=== PATIENT | female | born 1935 | race Caucasian/White ===

== ENCOUNTER 2019-07-10 19:33 | Emergency (ER) | payer MEDICARE, SELFPAY ==
--- NOTE | ~2019-07-10 | CT_ITS ---
EXAMINATION: CT brain wo con DATE: 07/10/2019 20:17 INDICATION: Head injury. TECHNIQUE: Computed tomography (CT) of the head was performed without intravenous contrast. The mA wa s adjusted according to patient size. Iterative reconstruction technique was employed. The dose-lengt h product was 605.33 mGy-cm. COMPARISON: None FINDINGS: There are lacunar infarcts in the bilateral basal ganglia. There are scattered areas of low attenuation in the cerebral white matter. There is no intracranial hemorrhage, acute infarction, or abnormal intracranial mass lesion. The ventricles are normal in size. There is mild mucosal thickenin g in the ethmoid sinuses. There are likely changes of ocular lens replacement surgeries. The mastoid air cells are normal. IMPRESSION: 1. Old lacunar infarcts in the bilateral basal ganglia. 2. Mild nonspecific cerebral white matter disease, which likely represents chronic small vessel ische tyler disease. Reviewed, dictated and finalized at location A. T FLOOR AUTOMATION MANAGER IMPRESSION: 1. Old lacunar infarcts in the bilateral basal ganglia. 2. Mild nonspecific cerebral white matter disease, which likely represents entry level administrative assistant drew small vessel ischemic disease.
--- NOTE | ~2019-07-10 | CT_ITS ---
EXAMINATION: CT cervical spine wo con DATE: 07/10/2019 20:17 INDICATION: Head injury. TECHNIQUE: Computed tomography (CT) of the cervical spine was performed without intravenous contrast. Automated exposure control and iterative reconstruction technique were employed. The dose-length pro duct was 376.31 mGy-cm. COMPARISON: None FINDINGS: There is a 1.7 cm nodule in left thyroid lobe. Further evaluation is likely not needed give n the patient's age. There is 3 degrees dextrocurvature of cervical spine. There is 2 mm anterolisthe sis of C7 on T1. Vertebral body heights are normal. There is severely decreased disc height at C2-C3, moderately decreased disc height at C3-C4 and C4-C5, and severely decreased disc height from C5-C6 t hrough C7-T1. The following disc levels are specifically discussed: C2-C3: There is moderate right and severe left uncovertebral joint osteoarthritis. There is moderate bilateral facet joint osteoarthritis. There is mild bilateral neural foraminal stenosis. There is mil d central canal stenosis. C3-C4: There is mild right and moderate left uncovertebral joint osteoarthritis. There is severe bila teral facet joint osteoarthritis. There is mild right and moderate left neural foraminal stenosis. Th ere is mild central canal stenosis. C4-C5: There is severe bilateral uncovertebral joint osteoarthritis. There is mild bilateral facet medardo int osteoarthritis. There is mild right and moderate left neural foraminal stenosis. There is mild ce ntral canal stenosis. C5-C6: There is severe bilateral uncovertebral joint osteoarthritis. There is mild right and moderate left facet joint osteoarthritis. There is moderate bilateral neural foraminal stenosis. There is mil d central canal stenosis. C6-C7: There is severe bilateral uncovertebral joint osteoarthritis. There is mild bilateral facet medardo int osteoarthritis. There is moderate bilateral neural foraminal stenosis. There is mild central geo l stenosis. C7-T1: There is severe bilateral uncovertebral joint osteoarthritis. There is severe bilateral facet joint osteoarthritis. There is mild bilateral neural foraminal stenosis. There is mild central canal stenosis. IMPRESSION: 1. No fracture. 2. Severe cervical spondylosis. Reviewed, dictated and finalized at location A. LER SECTIONS ASSEMBLER
[2019-07-10 19:36] VITALS: BP 109/91; PULSE 75; RESP 16; TEMP 36.4; O2SAT 97
--- NOTE | 2019-07-10 19:48 | ED.FALL ---
HPI - Fall General Chief Complaint: Fall Stated Complaint: fall head lac Time Seen by Provider: 07/10/19 19:48 Source: patient Mode of arrival: EMS Limitations: no limitations History of Present Illness HPI Narrative: An 84 y/o female presents to the ED, via EMS, after a fall 1.5 hours ago. 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 Pt is unsure if her tetanus immunization is UTD. She reports a laceration to her right forehead, but denies neck pain. Pt has a C-collar in place. Onset (ago): hour(s) (1.5) Fall from: chair Location of injury: head (right forehead) Related Data Home Medications Medication Instructions Recorded Confirmed Centrum Silver Women 05/24/19 Vitamin D3 05/24/19 allopurinol 05/24/19 carvedilol 05/24/19 duloxetine mg PO 05/24/19 hydrochlorothiazide 05/24/19 05/24/19 omeprazole 05/24/19 risperidone mg 05/24/19 turmeric 05/24/19 bupropion HCl 150 mg PO QAM 07/10/19 magnesium oxide 400 mg PO DAILY 07/10/19 Allergies Allergy/AdvReac Type Severity Reaction Status Date / Time lisinopril Allergy Severe swelling Verified 05/24/19 12:05 pregabalin Allergy Severe edema Verified 05/24/19 12:05 gabapentin Allergy Intermediate swelling Verified 05/24/19 12:05 Penicillins Allergy Unknown UNKNOWN Verified 05/24/19 12:05 Sulfa (Sulfonamide Allergy Unknown UNKNOWN Verified 05/24/19 12:05 Antibiotics) Review of Systems Review of Systems: All systems reviewed & are unremarkable except as noted in HPI and below Constitutional: Constitutional: Denies chills, Denies fever(s), Denies headache(s) and Denies weakness Comments: Reports: a fall Eyes: Eyes: Denies blurry vision ENT: Denies headache(s) and Denies neck pain Cardiovascular: Cardiovascular: Denies chest pain and Denies dyspnea Respiratory: Respiratory: Denies cough and Denies dyspnea Gastrointestinal: Gastrointestinal: Denies abdominal pain, Denies diarrhea, Denies nausea and Denies vomiting Genitourinary: Genitourinary: Denies hematuria and Denies dysuria Musculoskeletal: Musculoskeletal: Denies back pain and Denies neck pain Neurologic: Denies headache(s) and Denies weakness Comments: Reports: laceration to right forehead PMFSH Past Medical History Medical History (Updated 07/10/19 @ 23:36 by Shari Villalobos MD) Anxiety Back injury CHF (congestive heart failure) Depression GERD (gastroesophageal reflux disease) Gout HTN (hypertension) Multifocal atrial tachycardia Spinal stenosis Surgical History Surgical History (Updated 07/10/19 @ 20:15 by Shreron Turner) H/O adenoidectomy H/O gastric bypass with reversal History of appendectomy History of bilateral knee replacement History of gastric stapling History of tonsillectomy Hx of cholecystectomy Social History Social History (Updated 07/10/19 @ 20:15 by Sherron Turner) Smoking status: Never smoker Gender identity (if verbalized by the patient): Female Comments PCP: Dr. James Exam Const: General: no acute distress and well developed HENMT: Head: normocephalic Ears: external ears normal General nose exam: Normal external nose present Eyes: General: appearance normal, both eyes and all related structures Conjunctivae: conjunctivae normal Neck: Neck: normal visual inspection and full ROM Other: C-collar in place. Chest: Chest palpation & inspection: normal inspection of the chest and no tenderness Resp: Effort & Inspection: normal respiratory effort Auscultation: clear to auscultation bilaterally Cardio: Rate: regular rate Rhythm: regular rhythm GI: GI Palp: No abdominal tenderness and Yes Soft to palpation Skin: General skin exam: normal color and turgor normal Trauma: laceration (Laceration to right forehead) Neuro: Other: A&O x1. Disoriented to place and time. Extrem: General: no pedal edema Other: decreased ROM in bilateral arms for several weeks Psych: Appeara
[2019-07-10 20:03] VITALS: BP 140/68; PULSE 78; RESP 20; O2SAT 97
[2019-07-10] MEDS: TETANUS,DIPHTHERIA,AC PERTUSSIS ADULT (0.5 ML) BOOSTRIX IM (20:05)
[2019-07-10 21:23] VITALS: BP 145/82; PULSE 82
[2019-07-10 23:38] VITALS: BP 103/87; PULSE 76; RESP 20; O2SAT 95
--- NOTE | 2019-07-10 23:56 | PC.NURSE ---
Called [facility] to transport patient to [place]. ETA [id number]
[2019-07-11 01:02] VITALS: BP 133/54; PULSE 76; RESP 18; O2SAT 100
--- NOTE | 2019-07-11 02:00 | PC.NURSE ---
[facility] here
[2019-07-11 02:14] VITALS: BP 136/81; PULSE 80; RESP 20; O2SAT 95
== END 2019-07-11 02:17 ==
PROVIDERS: Emergency Provider Emergency Medicine
DX: S01.81XA Laceration without foreign body of other part of head, initial encounter (principal); Z23 Encounter for immunization; I50.9 Heart failure, unspecified; F41.9 Anxiety disorder, unspecified; F32.9 Major depressive disorder, single episode, unspecified; I11.0 Hypertensive heart disease with heart failure; M10.9 Gout, unspecified; Z98.84 Bariatric surgery status; Z96.653 Presence of artificial knee joint, bilateral; W18.39XA Other fall on same level, initial encounter
CPT/HCPCS: 12013; 70450; 72125; 90471; 90715; 99284

== ENCOUNTER 2019-08-21 22:15 | Observation (INO) | payer MEDICARE, SELFPAY ==
--- NOTE | ~2019-08-21 | XR_ITS ---
XR chest 1V portable DATE: 08/21/2019 22:44 INDICATION: Atrial fibrillation TECHNIQUE: Portable AP chest on 08/21/2019 at 2243 hours COMPARISON: 07/08/2017 PA and lateral chest FINDINGS: Heart size appears within normal range. There is aortic mild unfolding. No hilar or mediast inal enlargement is evident. The lungs appear clear of infiltrate or consolidation. No pleural effusion or pulmonary vascular nikhil estion or pneumothorax. Postoperative changes, left upper quadrant of abdomen. Osteoarthritic changes at the glenohumeral joints, particularly severe on the right. Degenerative spu rring of the thoracic and lumbar spine. IMPRESSION: No active cardiopulmonary disease or significant change since 07/08/2017 Reviewed, dictated and finalized at location A. IMPRESSION: No active cardiopulmonary disease or significant change since 2017
[2019-08-21 22:23] VITALS: BP 123/92; PULSE 129; RESP 20; TEMP 36.7; O2SAT 98
--- NOTE | 2019-08-21 22:29 | ECG_ITS ---
Measurements Intervals [place] Rate: 143 P: [place]: 0 QRS: 7 QRSD: 82 T: 87 QT: 317 QTc: 490 Interpretive Statements ATRIAL FIBRILLATION WITH RAPID VENTRICULAR RESPONSE LOW QRS VOLTAGE IN PRECORDIAL LEADS NONSPECIFIC ST & T-WAVE ABNORMALITY- LATERAL LEADS ABNORMAL ECG Electronically Signed On 08-22-2019 7:04:50 CDT by Ayan Winchester D.O.
[2019-08-21 23:01] LABS: Basophils Percent Auto 0.3 % (0.2-1.2); Eosinophils Absolute Auto 0.2 K/mm3 (0-0.3); Eosinophils Percent Auto 1.9 % (0-4.4); Hematocrit 30.5 % (37.0-47.0); Hemoglobin 9.4 g/dL (12.0-15.0); Immature Granulocyte Absolute 0.07 K/mm3 (0.00-0.031); Immature Granulocyte Percent A 0.7 % (0-0.5); Immature Platelet Fraction Pct 1.3 % (0.9-11.2); Lymphocytes Absolute Auto 0.89 K/mm3 (0.9-3.2); Lymphocytes Percent Auto 8.8 % (18.3-44.2); Mean Corpuscular HGB Conc 30.8 g/dl (32-36); Mean Corpuscular Hemoglobin 28.7 pg (26-34); Mean Corpuscular Volume 93.3 fl (80-100); Mean Platelet Volume 12.8 fl (7.4-10.4); Monocytes Percent Auto 10.1 % (2.6-8.5); Neutrophils Absolute Auto 7.9 K/mm3 (1.3-6.7); Neutrophils Percent Auto 78.2 % (45.5-73.1); Platelet Count Result 315 k/mm3 (150-375); Red Blood Count 3.27 M/mm3 (4.2-5.4); Red Cell Distribution Width 16.2 % (11.5-14.5); White Blood Count 10.1 K/mm3 (4.5-10.0)
--- NOTE | 2019-08-21 23:06 | PC.NURSE ---
REPORT GIVEN TO OLGA MENESES. TOLD ABOUT PENDING CARDIZEM DRIP AND BOLUS WITH PT HR 90BPM. RN STATES HE WILL CONSULT WITH EDP ABOUT CARDIZEM DRIP AND BOLUS.
[2019-08-21 23:08] LABS: INR 1.1; Prothrombin Time 13.6 Seconds (11.1-14.7)
--- NOTE | 2019-08-21 23:08 | ED.SKABFB ---
HPI - Skin/Abscess/Foreign Bdy General Chief complaint: Skin/Abscess/Foreign Body Stated complaint: abd drain problem Time Seen by Provider: 08/21/19 22:25 Source: patient and RN notes reviewed Mode of arrival: EMS Limitations: no limitations History of Present Illness HPI narrative: A 84 y/o female presents to the ED via EMS from [facility] with excess feces draining from her open ABD drain beginning tonight. She states that she had a open ABD drain placed after having janeth removed by Dr. Harris at [facility] ago. She reports that the drain has been draining as normal but that there is new MS staff who thought that it was draining too much when they changed her bandages tonight, so they called EMS to have the pt brought here to be evaluated. She also notes that she saw her surgeon 7 days ago and was told that everything was normal. She denies any fevers, chills, CP, SOB, N/V/D, or ABD pain. MD complaint: other (excess feces draining from her open ABD drain) Onset (ago): hour(s) (tonight) Context: other (Open ABD drain) Associated symptoms: denies other symptoms Treatments prior to arrival: bandages Related Data Home Medications Medication Instructions Recorded Confirmed Centrum Silver Women 05/24/19 Vitamin D3 05/24/19 allopurinol 05/24/19 carvedilol 05/24/19 duloxetine mg PO 05/24/19 hydrochlorothiazide 05/24/19 05/24/19 omeprazole 05/24/19 risperidone mg 05/24/19 turmeric 05/24/19 bupropion HCl 150 mg PO QAM 07/10/19 magnesium oxide 400 mg PO DAILY 07/10/19 Allergies Allergy/AdvReac Type Severity Reaction Status Date / Time lisinopril Allergy Severe swelling Verified 05/24/19 12:05 pregabalin Allergy Severe edema Verified 05/24/19 12:05 gabapentin Allergy Intermediate swelling Verified 05/24/19 12:05 Penicillins Allergy Unknown UNKNOWN Verified 05/24/19 12:05 Sulfa (Sulfonamide Allergy Unknown UNKNOWN Verified 05/24/19 12:05 Antibiotics) Review of Systems Review of Systems: All systems reviewed & are unremarkable except as noted in HPI and below Constitutional: Constitutional: Denies chills and Denies fever(s) Cardiovascular: Cardiovascular: Denies chest pain Respiratory: Respiratory: Denies dyspnea Gastrointestinal: Gastrointestinal: Denies abdominal pain, Denies diarrhea, Denies nausea, Denies vomiting and Reports other (Excess feces draining from open ABD drain) [facility] Past Medical History Medical History (Updated 08/22/19 @ 00:04 by Brodie Tse) A-fib Abdominal abscess Anxiety Back injury CHF (congestive heart failure) Depression GERD (gastroesophageal reflux disease) Gout HTN (hypertension) Multifocal atrial tachycardia Open abdominal incision with drainage Spinal stenosis Surgical History Surgical History (Updated 08/22/19 @ 00:05 by Brodie Tse) H/O adenoidectomy H/O gastric bypass with reversal History of abdominal surgery Removal of abscesses and placed a ABD drain. History of appendectomy History of bilateral knee replacement History of gastric stapling History of tonsillectomy Hx of cholecystectomy Social History Social History Smoking status: Never smoker Gender identity (if verbalized by the patient): Female Exam Narrative: Exam Narrative: General appearance: Well-developed, well-nourished, morbidly obese, no family member at the bedside Skin: Normal color Head: Normocephalic, nontraumatic Eyes: Clear conjunctiva ENT: Oropharynx normal, ears normal, nose normal Neck: Supple, nontender Chest and respiratory: Airway patent, no respiratory distress, no accessory muscle use Heart: Regular rate/rhythm Abdomen: Soft, nontender, no organomegaly, quiet bowel sounds, 1-1/2 x 1 and half centimeter opening at the left lower abdomen draining yellow frothy discharge.. No tenderness, no guarding or rebound Vascular: Normal peripheral pulses, normal capillary refill. Musculoskeletal: Normal range of motion, nonten
[2019-08-21 23:09] LABS: Partial Thromboplastin Time 31.5 SECONDS (22.3-36.8)
[2019-08-21 23:17] LABS: Alanine Aminotransferase 12 U/L (4-35); Albumin Level 3.6 g/dL (3.5-5.1); Alkaline Phosphatase 105 U/L (38-126); Aspartate Amino Transferase 17 U/L (14-36); Bilirubin,Total 0.4 mg/dL (0.2-1.3); Blood Urea Nitrogen 23 mg/dL (7-17); Calcium 9.2 mg/dL (8.4-10.2); Carbon Dioxide 29 mmol/L (22-30); Chloride 100 mmol/L (98-107); Estimated Glomerular Filt Rate 47; Glucose 106 mg/dL (65-105); Potassium 3.7 mmol/L (3.4-5.0); Sodium 138 mmol/L (137-145)
[2019-08-21 23:24] LABS: Troponin I < 0.012 ng/mL (0.000-0.034)
[2019-08-21 23:26] LABS: NT Pro B Type Natriuretic Pept 663 PG/ML (5-100)
[2019-08-21 23:58] VITALS: BP 148/77; PULSE 93; RESP 18; O2SAT 98
[2019-08-22] VITALS (9 sets, daily range): BP systolic 119–134; BP diastolic 61–80; PULSE 78–94; RESP 16–22; TEMP 35.9–36.8; O2SAT 95–100; BMI 36.2
--- NOTE | 2019-08-22 00:28 | PM.IMHP ---
H&P: HPI History of Present Illness Chief complaint: Paroxymal A. Fib, Chronic abdominal wall fistula Narrative: This is an unfortunate 84 year old female with a history of an episode of atrial fibrillation in the past and a chronic lower abdominal fistula which is followed at [facility] by Dr. Harris. The patient was sent to the hospital for evaluation from [place] as the staff there were worried about the output she has had from her fistula. The patient told EMS to take her to [facility] but en route she developed tachycardia and was brought to [facility] for evaluation. The patient was found to be in rapid atrial fibrillation. She denies any significant symptoms tonight. She denies any chest pain, cough, fevers, shortness of breath, sore throat, palpitations, abdominal pain, dysuria, hematuria, nausea, vomiting, diarrhea or rectal bleeding. The pateint was started on Cardizem IV in the ER and [facility] was called. She was placed on a waiting list as there are no beds available at this time. She is not on any anticoagulants or other medications for atrial fibrillation as she has only had one single episode of atrial fibrillation in the past. She verbalized to me tonight that she does not want to be on any anticoagulants. No other complaints. Review of Systems Review of Systems: All systems reviewed & are unremarkable except as noted in HPI and below PMFSH Past Medical History Medical History A-fib Abdominal abscess Anxiety Back injury CHF (congestive heart failure) Depression GERD (gastroesophageal reflux disease) Gout HTN (hypertension) Multifocal atrial tachycardia Open abdominal incision with drainage Spinal stenosis Surgical History Surgical History H/O adenoidectomy H/O gastric bypass with reversal History of abdominal surgery Removal of abscesses and placed a ABD drain. History of appendectomy History of bilateral knee replacement History of gastric stapling History of tonsillectomy Hx of cholecystectomy Family History Family History Mother Hypertension Lung cancer Father Lung cancer Social History Social History Smoking status: Never smoker Second hand tobacco smoke exposure: Yes (parents) Alcohol intake: former Drinks per week: 0 Substance use: never Gender identity (if verbalized by the patient): Female Spiritual care concerns: No Meds Home Medications and Allergies Home Medications Medication Instructions Recorded Confirmed Type Vitamin D3 10,000 unit PO DAILY 05/24/19 08/22/19 History allopurinol 300 mg PO DAILY 05/24/19 08/22/19 History duloxetine 60 mg PO BID 05/24/19 08/22/19 History hydrochlorothiazide 25 mg PO DAILY 05/24/19 08/22/19 History omeprazole 20 mg PO DAILY 05/24/19 08/22/19 History risperidone 1 mg PO DAILY 05/24/19 08/22/19 History turmeric 450 mg PO DAILY 05/24/19 08/22/19 History bupropion HCl 150 mg PO QAM 07/10/19 08/22/19 History magnesium oxide 400 mg PO DAILY 07/10/19 08/22/19 History cefdinir 300 mg PO Q12H 08/22/19 08/22/19 History Allergies Allergy/AdvReac Type Severity Reaction Status Date / Time lisinopril Allergy Severe swelling Verified 05/24/19 12:05 pregabalin Allergy Severe edema Verified 05/24/19 12:05 gabapentin Allergy Intermediate swelling Verified 05/24/19 12:05 Penicillins Allergy Unknown UNKNOWN Verified 05/24/19 12:05 Sulfa (Sulfonamide Allergy Unknown UNKNOWN Verified 05/24/19 12:05 Antibiotics) Vital Signs Vital Signs - 24 hr 08/21/19 22:23 08/21/19 23:58 Temperature 36.7 C Pulse Rate 129 H 93 Respiratory Rate 20 18 Blood Pressure 123/92 H 148/77 H Pulse Oximetry 98 98 Exam Const: General: cooperative, no acute distress, alert, awake and ill appearing chronically N
--- NOTE | 2019-08-22 01:55 | PC.NURSE ---
This patient, Garrison Daley, was admitted to IMU Room 211-01. Patient/family oriented to hospital policies and general routines including ID bracelet, bed and alarms, visiting hours, pain management, procedures, bathroom and other care routines, personal items, smoking policy, room service/diet, and visiting hours. Valuables list has been completed. Information on how to activate the Rapid Response Team has been discussed. Patient/Family are encouraged to report perceived risks to care and to ask questions if they do not understand what they are told or what they should do.
--- NOTE | 2019-08-22 01:55 | ECG_ITS ---
Measurements Intervals [place] Rate: 93 P: 41 [place]: 164 QRS: 7 QRSD: 85 T: 34 QT: 345 QTc: 430 Interpretive Statements SINUS RHYTHM ATRIAL COUPLET AND ATRIAL PREMATURE COMPLEX EARLY PRECORDIAL R/S TRANSITION LOW QRS VOLTAGE IN PRECORDIAL LEADS ABNORMAL ECG Electronically Signed On 08-22-2019 11:31:21 CDT by Ayan Winchester D.O.
[2019-08-22 02:32] LABS: Troponin I < 0.012 ng/mL (0.000-0.034)
[2019-08-22 04:54] LABS: Basophils Percent Auto 0.1 % (0.2-1.2); Eosinophils Absolute Auto 0.1 K/mm3 (0-0.3); Eosinophils Percent Auto 1.6 % (0-4.4); Hematocrit 27.1 % (37.0-47.0); Hemoglobin 8.5 g/dL (12.0-15.0); Immature Granulocyte Absolute 0.05 K/mm3 (0.00-0.031); Immature Granulocyte Percent A 0.6 % (0-0.5); Lymphocytes Absolute Auto 1.02 K/mm3 (0.9-3.2); Lymphocytes Percent Auto 11.9 % (18.3-44.2); Mean Corpuscular HGB Conc 31.4 g/dl (32-36); Mean Corpuscular Hemoglobin 28.4 pg (26-34); Mean Corpuscular Volume 90.6 fl (80-100); Mean Platelet Volume 11.8 fl (7.4-10.4); Monocytes Absolute Auto 0.8 K/mm3 (0.1-0.6); Monocytes Percent Auto 9.3 % (2.6-8.5); Neutrophils Absolute Auto 6.6 K/mm3 (1.3-6.7); Neutrophils Percent Auto 76.5 % (45.5-73.1); Platelet Count Result 197 k/mm3 (150-375); Red Blood Count 2.99 M/mm3 (4.2-5.4); White Blood Count 8.6 K/mm3 (4.5-10.0)
[2019-08-22 05:07] LABS: Blood Urea Nitrogen 22 mg/dL (7-17); Calcium 8.8 mg/dL (8.4-10.2); Carbon Dioxide 30 mmol/L (22-30); Chloride 102 mmol/L (98-107); Estimated CRCL calculation 47 ml/min; Estimated Glomerular Filt Rate 60; Glucose 109 mg/dL (65-105); Magnesium 1.1 mg/dL (1.6-2.3); Potassium 3.5 mmol/L (3.4-5.0); Sodium 137 mmol/L (137-145)
[2019-08-22 05:19] LABS: Troponin I < 0.012 ng/mL (0.000-0.034)
--- NOTE | 2019-08-22 08:09 | PM.IMPN ---
Progress Note: A&P Assessment and Plan (1) Atrial fibrillation with rapid ventricular response: Code(s): I48.91 - Unspecified atrial fibrillation Status: Acute Assessment and Plan: Telemetry reviewed on 08/22/2019 with atrial fibrillation with heart rate controlled. Currently on IV dilitazem. Cardiology consulted but patient has bed available at [place] and will transfer this morning. Echocardiogram ordered but do not anticipate completion before transfer. (2) Abdominal fistula: Code(s): K63.2 - Fistula of intestine Status: Chronic Assessment and Plan: Sees Dr. Harris at [place]. Has been accepted in transfer with bed now available. Treatment per surgery at [place]. (3) HTN (hypertension): Qualifiers: Hypertension type: unspecified Qualified Code(s): I10 - Essential (primary) hypertension Code(s): I10 - Essential (primary) hypertension Status: Chronic Assessment and Plan: Blood pressure reviewed on 08/22/2019 and stable. Continue to monitor on HCTZ. (4) GERD (gastroesophageal reflux disease): Qualifiers: Esophagitis presence: esophagitis presence not specified Qualified Code(s): K21.9 - Gastro-esophageal reflux disease without esophagitis Code(s): K21.9 - Gastro-esophageal reflux disease without esophagitis Status: Chronic Assessment and Plan: Stable. Continue Protonix. (5) Depression: Qualifiers: Depression Type: other depression Qualified Code(s): F32.89 - Other specified depressive episodes Code(s): F32.9 - Major depressive disorder, single episode, unspecified Status: Chronic Assessment and Plan: Mood stable. Continue duloxetine and bupropion. (6) CHF (congestive heart failure): Qualifiers: Heart failure type: unspecified Heart failure chronicity: chronic Qualified Code(s): I50.9 - Heart failure, unspecified Code(s): I50.9 - Heart failure, unspecified Status: Acute Assessment and Plan: No exacerbation. (7) Normocytic anemia: Code(s): D64.9 - Anemia, unspecified Status: Chronic Assessment and Plan: Likely anemia of chronic disease. Hgb 8.5 today. Can be followed at [place]. (8) Gout: Qualifiers: Gout site: unspecified site Gout etiology: unspecified cause Chronicity: chronic Presence of tophus: without tophus Qualified Code(s): M1A.9XX0 - Chronic gout, unspecified, without tophus (tophi) Code(s): M10.9 - Gout, unspecified Status: Chronic Assessment and Plan: Stable. Continue allopurinol. (9) DVT prophylaxis: Code(s): Z29.9 - Encounter for prophylactic measures, unspecified Status: Acute Assessment and Plan: SCDs. Time Spent With Patient Time with patient: 15 - 25 minutes Subjective Date/time seen: 08/22/19 08:09 Interval history: Date of Service: 08/22/2019. Admitted with atrial fibrillation with RVR, drainage from chronic abdominal fistula. No chest pain or palpitations. No shortness of breath. Still has drainage from fistula. No nausea or vomiting. Review of Systems Constitutional: Constitutional: Denies chills and Denies fever(s) ENT: Denies dysphagia Cardiovascular: Cardiovascular: Denies chest pain and Denies palpitations Respiratory: Respiratory: Denies dyspnea Gastrointestinal: Gastrointestinal: Denies abdominal pain, Denies nausea and Denies vomiting Musculoskeletal: Musculoskeletal: Reports no additional musculoskeletal complaints Integumentary/Breasts: Comments: chronic fistula lower abdomen with drainage Neurologic: Denies headache(s) Psychiatric: Psychiatric: Denies anxiety and Denies depression Exam Narrative: Exam Narrative: Awake and alert. Const: General: no acute distress HENMT: Mouth: Yes moist mucous membranes Neck: Neck: supple Lymphatic: lymphadenopathy not noted Resp: Auscultation: clear to auscultation bi
[2019-08-22] MEDS: MAGNESIUM SULF 2 GM/WATER 50ML 2 GM/50 ML BAG IVPB (08:10)
[2019-08-22] MEDS: PANTOPRAZOLE 40 MG TABLET PO (08:14)
[2019-08-22] MEDS: hydroCHLOROthiazide 25 MG TABLET PO (08:14)
[2019-08-22] MEDS: risperiDONE 1 MG TABLET PO (08:14)
[2019-08-22] MEDS: buPROPion HCL XL (24 HR) 150 MG TABCR PO (08:14)
[2019-08-22] MEDS: MAGNESIUM OXIDE 400 MG TABLET PO (08:14)
[2019-08-22] MEDS: DULOXETINE 60 MG CAPSULE.DR PO (08:14)
--- NOTE | 2019-08-22 08:27 | PM.TDS ---
Transfer Discharge Sum: Prov Provider Date of admission: 08/22/19 00:14 Primary care physician: UNKNOWN,DOCTOR Admitting clinician: Bob Green MD Attending physician on admission: Bob Green Consults: 08/22/19 00:44 Consult to Physician Routine Comment: Consulting Provider: Lobo Vincent call center coordinator/MD group to consult: Cardiology Reason for consultation: Atrial fibrillation w/ RVR Has provider been notified: Yes Attending physician on discharge: Jyoti Taylor Discharging clinician: Jyoti Taylor Anticipated date of transfer: 08/22/19 Receiving physician/facility: Dr. Rodriguez (colorectal), Dr. Del Angel (hospitalist), Dr. 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 - Fistula of intestine Status: Chronic (3) Hypomagnesemia: Code(s): E83.42 - Hypomagnesemia Status: Acute (4) HTN (hypertension): Qualifiers: Hypertension type: unspecified Qualified Code(s): I10 - Essential (primary) hypertension Code(s): I10 - Essential (primary) hypertension Status: Chronic (5) GERD (gastroesophageal reflux disease): Qualifiers: Esophagitis presence: esophagitis presence not specified Qualified Code(s): K21.9 - Gastro-esophageal reflux disease without esophagitis Code(s): K21.9 - Gastro-esophageal reflux disease without esophagitis Status: Chronic (6) Depression: Qualifiers: Depression Type: other depression Qualified Code(s): F32.89 - Other specified depressive episodes Code(s): F32.9 - Major depressive disorder, single episode, unspecified Status: Chronic (7) CHF (congestive heart failure): Qualifiers: Heart failure chronicity: chronic Heart failure type: unspecified Qualified Code(s): I50.9 - Heart failure, unspecified Code(s): I50.9 - Heart failure, unspecified Status: Acute (8) Normocytic anemia: Code(s): D64.9 - Anemia, unspecified Status: Chronic (9) Gout: Qualifiers: Chronicity: chronic Gout etiology: unspecified cause Gout site: unspecified site Presence of tophus: without tophus Qualified Code(s): M1A.9XX0 - Chronic gout, unspecified, without tophus (tophi) Code(s): M10.9 - Gout, unspecified Status: Chronic Transfer Discharge Sum: Med Medications Active and Home Medications: Home Medications Vitamin D3 10,000 unit PO DAILY 05/24/19 [History Confirmed 08/22/19] allopurinol 300 mg PO DAILY 05/24/19 [History Confirmed 08/22/19] duloxetine 60 mg PO BID 05/24/19 [History Confirmed 08/22/19] hydrochlorothiazide 25 mg PO DAILY 05/24/19 [History Confirmed 08/22/19] omeprazole 20 mg PO DAILY 05/24/19 [History Confirmed 08/22/19] risperidone 1 mg PO DAILY 05/24/19 [History Confirmed 08/22/19] turmeric 450 mg PO DAILY 05/24/19 [History Confirmed 08/22/19] bupropion HCl 150 mg PO QAM 07/10/19 [History Confirmed 08/22/19] magnesium oxide 400 mg PO DAILY 07/10/19 [History Confirmed 08/22/19] cefdinir 300 mg PO Q12H 08/22/19 [History Confirmed 08/22/19] Active Medications Acetaminophen (Tylenol Tablet) 650 mg PO Q4H PRN PRN Reason: Mild Pain (1-3) or Fever Allopurinol (Zyloprim) 300 mg PO DAILY [facility] Bupropion HCl (Wellbutrin Xl (24 Hr)) 150 mg PO QAM [facility] Last Admin: 08/22/19 08:14 Dose: 150 mg Documented by: Duloxetine HCl (Cymbalta) 60 mg PO BID [facility] Last Admin: 08/22/19 08:14 Dose: 60 mg Documented by: Hydrochlorothiazide (Hydrochlorothiazide) 25 mg PO DAILY [facility] Last Admin: 08/22/19 08:14 Dose: 25 mg Documented by: Diltiazem HCl (Cardizem 100 Mg/D5w 100 Ml) 100 mg in 100 mls @ 5 mls/hr IV CONT .Q20H STA; Protocol Stop: 08/22/19 18:30 Last Admin: 08/21
--- NOTE | 2019-08-22 08:52 | PM.CNCAR ---
Assessment and Plan Assessment and plan (1) Atrial fibrillation with rapid ventricular response: Code(s): I48.91 - Unspecified atrial fibrillation Status: Acute Assessment and Plan: Patient is an 84-year-old white woman with history of possible atrial fibrillation (1970s), chronic lower abdominal fistula actively draining, hypertension, obstructive sleep apnea (intolerant of CPAP), spinal stenosis, gout, GERD, depression, anxiety, who was seen in cardiac consultation for atrial fibrillation with rapid ventricular response. - patient presented with atrial fibrillation with rapid ventricular response. She has a questionable remote history of atrial fibrillation. - Rate control currently improved on diltiazem 5 milligrams/hour intravenously. Telemetry is currently revealing atrial fibrillation, 76 beats per minute. - Her atrial fibrillation occurred in the setting of hypomagnesemia with magnesium level of 1.1 this admission. Magnesium being repleted with 2 g intravenously and with magnesium oxide 400 mg b.i.d., with need for reassessment of magnesium level. - Her presenting potassium of 3.5 was also supplemented orally. - Risks and benefits of anticoagulation for thromboembolic risk reduction discussed with the patient and at present she does not want anticoagulation despite discussion of risks and benefits. Aspirin was not initiated given the possibility that she may need surgical management of her fistula following her impending transfer to [facility]. - TSH normal this admission. 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 - serial troponin negative for injury and patient denies chest pain. EKG without evidence of acute injury. - patient will benefit from eventual outpatient Lexiscan nuclear stress testing to evaluate for ischemia given her atrial fibrillation. (2) CHF (congestive heart failure): Qualifiers: Heart failure chronicity: chronic Heart failure type: unspecified Qualified Code(s): I50.9 - Heart failure, unspecified Code(s): I50.9 - Heart failure, unspecified Status: Acute Assessment and Plan: -N terminal proBNP was elevated this admission at 663, consistent with acute congestive heart failure in the setting of her atrial fibrillation with rapid ventricular response. -chest x-ray without evidence of pulmonary vascular congestion or pleural effusions. Patient denies any recent dyspnea. -resumed her outpatient regimen of hydrochlorothiazide. -Await echocardiogram with pending transfer. (3) HTN (hypertension): Qualifiers: Hypertension type: unspecified Qualified Code(s): I10 - Essential (primary) hypertension Code(s): I10 - Essential (primary) hypertension Status: Chronic Assessment and Plan: - blood pressure well controlled this admission and will continue to monitor on a patient regimen. (4) Obstructive sleep apnea: Code(s): G47.33 - Obstructive sleep apnea (adult) (pediatric) Status: Acute Assessment and Plan: -patient reports intolerance of CPAP previously. -consider oral device per specially dentist for management of her DUSTIN, especially given her atrial fibrillation. History of Present Illness History of Present Illness Consult date/time: 08/22/19 08:52 Patient is an 84-year-old white woman with history of possible atrial fibrillation (), chronic lower abdominal fistula actively draining, hypertension, obstructive sleep apnea (intolerant of CPAP), spinal stenosis, gout, GERD, depression, anxiety, who was seen in cardiac consultation for atrial fibrillation with rapid ventricular response. Patient was en route from [facility] for a evaluation of increased output from her abdominal fistula when it was noticed that rin
--- NOTE | 2019-08-22 09:16 | PC.NURSE ---
Report called to [place] @ [facility] @ [id number]
== END 2019-08-22 10:00 | disposition short-term general hospital (02) ==
LOC: ANHED 08-22 00:05 → ANH3MEDSUR 08-22 00:56 → ANHIMU 08-22 01:58 → ANH3MEDSUR 08-23 09:17 → ANHIMU 08-23 09:17
PROVIDERS: Admitting Provider Family Medicine; Emergency Provider Emergency Medicine; Visit Provider Hospitalist
DX: I48.91 Unspecified atrial fibrillation (principal); K63.2 Fistula of intestine; E83.42 Hypomagnesemia; I11.0 Hypertensive heart disease with heart failure; I50.9 Heart failure, unspecified; K21.9 Gastro-esophageal reflux disease without esophagitis; F32.89 Other specified depressive episodes; M1A.9XX0 Chronic gout, unspecified, without tophus (tophi); D64.9 Anemia, unspecified; G47.33 Obstructive sleep apnea (adult) (pediatric); Z79.899 Other long term (current) drug therapy; Z96.653 Presence of artificial knee joint, bilateral
CPT/HCPCS: 36415; 71045; 80048; 80053; 83735; 83880; 84443; 84484; 85025; 85055; 85610; 85730; 87081; 93005; 96365; 96366; 96368; 99285; A9270; G0378; J3475